=== PATIENT | male | born 1955 | race American Indian/Alaskan Native ===

== ENCOUNTER 2018-08-18 21:48 | Inpatient (IN) | payer MEDICARE ==
--- NOTE | 2018-08-18 22:39 | ED PDOC ---
Arrival/HPI - General Chief Complaint: Med Refill Time Seen by Provider: 08/18/18 21:51 Historian: Patient - History of Present Illness Narrative History of Present Illness (Text): 08/18/18 22:39 Pollo Pickard is a 62 year old male who presents to the ED complaining of dizziness. Patient states he began feeling near-syncopal and dizzy approximately 1 hour prior to arrival while sitting outside. Patient states he has experienced these symptoms when "his dementia comes back." Patient states he takes medication for his dementia but is unable to recall the name. Patient also admits to drinking alcohol today. Patient denies any fever, chills, chest pain, shortness of breath, nausea, vomiting, diarrhea, urinary symptoms, back pain, neck pain, headache, or any other complaints. PMD: Dr. Jennifer Ferrera Symptom Onset: Gradual Symptom Course: Unchanged Activities at Onset: Light Context: Home Past Medical History - Provider Review Nursing Documentation Reviewed: Yes Primary Care Provider: Luis Ferrera A - Infectious Disease Hx of Infectious Diseases: None - Cardiac Hx Cardiac Disorders: No - Pulmonary Hx Respiratory Disorders: No - Neurological Hx Neurological Disorder: Yes Hx Dementia: Yes - HEENT Hx HEENT Disorder: No - Renal Hx Renal Disorder: No - Endocrine/Metabolic Hx Endocrine Disorders: No - Hematological/Oncological Hx Blood Disorders: No - Integumentary Hx Dermatological Disorder: No - Musculoskeletal/Rheumatological Hx Musculoskeletal Disorders: No - Gastrointestinal Hx Gastrointestinal Disorders: No - Genitourinary/Gynecological Hx Genitourinary Disorders: No - Psychiatric Hx Psychophysiologic Disorder: No Hx Substance Use: No - Anesthesia Hx Anesthesia: No Family/Social History - Physician Review Nursing Documentation Reviewed: Yes Family/Social History: Unknown Family HX Smoking Status: Light Smoker < 10 Cigarettes Daily Hx Alcohol Use: No (once a week) Hx Substance Use: No Allergies/Home Meds Allergies/Adverse Reactions: Allergies No Known Allergies Allergy (Verified 08/18/18 22:17) Home Medications: Home Meds Medication Instructions Recorded Confirmed Unobtainable 08/18/18 08/18/18 Review of Systems - Physician Review All systems were reviewed & negative as marked: Yes - Review of Systems Respiratory: absent: SOB, Cough Cardiovascular: Other (+near-syncopal). absent: Chest Pain Gastrointestinal: absent: Diarrhea, Nausea, Vomiting Neurological: Dizziness Physical Exam Vital Signs Reviewed: Yes Vital Signs Temp Pulse Resp BP Pulse Ox 08/18/18 22:17 98.4 F 96 H 15 151/89 H 96 Temperature: Afebrile Blood Pressure: Hypertensive Pulse: Regular Respiratory Rate: Normal Appearance: Positive for: Well-Appearing, Non-Toxic, Comfortable Pain Distress: None Mental Status: Positive for: Alert and Oriented X 3 - Systems Exam Head: Present: Atraumatic, Normocephalic Pupils: Present: PERRL Extroacular Muscles: Present: EOMI Conjunctiva: Present: Normal Mouth: Present: Moist Mucous Membranes Neck: Present: Normal Range of Motion Respiratory/Chest: Present: Clear to Auscultation, Good Air Exchange. No: Respiratory Distress, Accessory Muscle Use Cardiovascular: Present: Regular Rate and Rhythm, Normal S1, S2. No: Murmurs Abdomen: No: Tenderness, Distention, Peritoneal Signs Back: Present: Normal Inspection Upper Extremity: Present: Normal Inspection. No: Cyanosis, Edema Lower Extremity: Present: Normal Inspection. No: Edema Neurological: Present: GCS=15, CN II-XII Intact, Speech Normal Skin: Present: Warm, Dry, Normal Color. No: Rashes Psychiatric: Present: Alert, Oriented x 3, Normal Insight, Normal Concentration Medical Decision Making ED Course and Treatment: 08/18/18 22:39 Impression: 62 year old male complaining of dizziness and near-syncope. Plan: -- CT Head w/o contrast -- EKG -- Chest X-ray -- Labs, troponin, alcohol -- UA -- Reassess and disposition Prior Visits: Notes and results from previous visits were reviewed. Progress Notes: Reviewed EKG, NSR at [address]pm[address] LVH. Non-specific ST/T wave changes. 08/19/18 00:30 Chest X-ray reviewed, shows no acute processes. 08/19/18 00:45 CT Head: Minimal chronic mucosal inflammatory changes of the ethmoid air cells. There is normal configuration of sella turcica. There are no intra or extra- axial collections. There is no mass effect or midline shift. There is no evidence of hematoma formation. No hydrocephalus is present. The ventricles are symmetrical. No abnormal calcifications are present. There is diffuse age-appropriate cerebellar and cerebral atrophy with proportionally dilated ventricles and cortical sulci. There are bilateral periventricular and subcortical white matter hypolucencies compatible with mild chronic microvascular disease. Otherwise, no significant focal abnormalities are seen either in the posterior fossa or supratentorial compartment. IMPRESSION: 1. Age-appropriate cerebellar and cerebral atrophy. 2. Mild chronic microvascular disease. 3. No evidence of acute intracranial pathology. Thank you for your kind referral of this patient. Electronically signed on August 19, 2018 12:41:47 AM EDT by: Willie Dang M.D., Certified by ABR, MSK, Neuroradiology 08/19/18 00:[address] Glasgow, who is aware and agrees with plan. Accepts pt in to hospitalist service. Pt will go to remote telemetry observation for AMS and near-syncope. cmo & president notified. - Lab Interpretations I have reviewed the lab results: Yes - RAD Interpretation Hybrid [employer]ivatives Trader: ED Physician - EKG Interpretation Interpreted by ED Physician: Yes Type: 12 lead EKG - Scribe Statement The provider has reviewed the documentation as recorded by the Scribe Jennifer Curtis Provider Scribe Attestation: All medical record entries made by the Scribe were at my direction and personally dictated by me. I have reviewed the chart and agree that the record accurately reflects my personal performance of the history, physical exam, medical decision making, and the department course for this patient. I have also personally directed, reviewed, and agree with the discharge instructions and disposition. Disposition/Present on Arrival - Present on Arrival Any Indicators Present on Arrival: No History of DVT/PE: No History of Uncontrolled Diabetes: No Urinary Catheter: No History of Decub. Ulcer: No History Surgical Site Infection Following: None - Disposition Have Diagnosis and Disposition been Completed?: Yes Diagnosis: Altered mental status Disposition: HOSPITALIZED Disposition Time: 00:50 Condition: GOOD
[2018-08-18 23:35] LABS: ALB/GLOB RATIO 1.1 (1.1-1.8); ALBUMIN 4.2 g/dL (3.0-4.8); ALT/SGPT 18 U/L (7-56); AST/SGOT 20 U/L (17-59); BLOOD UREA NITROGEN 7 mg/dL (7-21); CALCIUM 10.1 mg/dL (8.4-10.5); GFR NON-AFRICAN AMERICAN > 60
[2018-08-18 23:37] LABS: BASO # 0.01 K/mm3 (0.0-2.0); BASO % 0.2 % (0.0-3.0); EOS % 0.2 % (1.5-5.0); HEMOGLOBIN 13.7 g/dL (14.0-18.0); LYMPH # 1.4 (1.2-3.4); LYMPH % 24.6 % (22.0-35.0); MEAN CORPUSCULAR HEMOGLOBIN 28.8 pg (25.0-35.0); MEAN CORPUSCULAR HGB CONC 34.3 g/dl (31.0-37.0); MEAN PLATELET VOLUME 11.4 fl (7.0-11.0); MONO # 0.9 (0.1-0.6); MONO % 16.2 % (1.0-6.0); RBC 4.75 10^6/uL (3.5-6.1); RED CELL DISTRIBUTION WIDTH 16.4 % (11.5-14.5); WHITE BLOOD COUNT 5.7 10^3/uL (4.5-11.0)
[2018-08-18 23:46] LABS: TROPONIN I < 0.01 ng/mL
--- NOTE | 2018-08-19 01:21 | CP.PCM.HP ---
<Francesco Ferreira - Last Filed: 08/19/18 04:26> History of Present Illness - History of Present Illness History of Present Illness: Francesco Ferreira, PGY1 H&P for Dr. Glasgow cc: "confusion/dementia" Patient is a 62 year old male with PMHx dementia who presents to the ED complaining of "confusion/dementia." Patient says he was sitting outside 1 hour prior to arrival to the ED when he felt confused. He endorses a history of dementia and says he takes medication for his dementia but does not recall the n baldev. Patient is currently AAOx2 during interview (person, place). He has no previous visits to [facility] [place] [facility] [place]. Patient denies tongue biting, foaming of mouth, incontinence, or any seizure like activity prior to arrival. However, he does say that he drank a few beers before coming in to the ED. He denies fever, chills, headache, n/v/d, cp, sob, bowel/bladder changes. Patient claims to live at [address] [place] [address], at an apartment in [place]. He says he goes to multiple pharmacies and cannot recall the names of them. A full 12 point ROS was conducted and unremarkable except as stated above. No previous visits PMD: Dr. Jennifer Ferrera PMHx: dementia PSHx: denies Meds: unobtainable Allergies: NKDA SocialHx: smoker (<1 PPD x12 years), drinks EtOH (few beers), denies illicit drug use. FamHx: non-contributory Present on Admission - Present on Admission Any Indicators Present on Admission: No Review of Systems - Review of Systems All systems: reviewed and no additional remarkable complaints except (as per HPI) Past Patient History - Infectious Disease Hx of Infectious Diseases: None - Past Social History Smoking Status: Light Smoker < 10 Cigarettes Daily - CARDIAC Hx Cardiac Disorders: No - PULMONARY Hx Respiratory Disorders: No - NEUROLOGICAL Hx Neurological Disorder: Yes Hx Dementia: Yes - HEENT Hx HEENT Problems: No - RENAL Hx Chronic Kidney Disease: No - ENDOCRINE/METABOLIC Hx Endocrine Disorders: No - HEMATOLOGICAL/ONCOLOGICAL Hx Blood Disorders: No - INTEGUMENTARY Hx Dermatological Problems: No - MUSCULOSKELETAL/RHEUMATOLOGICAL Hx Musculoskeletal Disorders: No - GASTROINTESTINAL Hx Gastrointestinal Disorders: No - GENITOURINARY/GYNECOLOGICAL Hx Genitourinary Disorders: No - PSYCHIATRIC Hx Psychophysiologic Disorder: No Hx Substance Use: No - SURGICAL HISTORY Hx Surgeries: No - ANESTHESIA Hx Anesthesia: No Meds Allergies/Adverse Reactions: Allergies Allergy/AdvReac Type Severity Reaction Status Date / Time No Known Allergies Allergy Verified 08/18/18 22:17 Physical Exam - Constitutional Appears: No Acute Distress, Unkempt - Head Exam Head Exam: ATRAUMATIC, NORMAL INSPECTION, NORMOCEPHALIC - Eye Exam Eye Exam: Conjunctival injection, EOMI, PERRL Pupil Exam: NORMAL ACCOMODATION - ENT Exam ENT Exam: Mucous Membranes Moist - Respiratory Exam Respiratory Exam: Clear to Auscultation Bilateral. absent: Accessory Muscle Use, Chest Wall Tenderness, Rales, Rhonchi, Wheezes - Cardiovascular Exam Cardiovascular Exam: RRR, +S1, +S2 - GI/Abdominal Exam GI & Abdominal Exam: Normal Bowel Sounds, Soft. absent: Firm, Guarding, Rebound, Rigid, Tenderness - Extremities Exam Extremities exam: Positive for: normal capillary refill, normal inspection, pedal pulses present - Back Exam Back exam: NORMAL INSPECTION - Neurological Exam Neurological exam: Alert, CN II-XII Intact, Oriented x3, Reflexes Normal Additional comments: Neuro exam normal. No focal neurological deficits. 5/5 motor strength in all ext. Sensation intact in all distal ext. - Psychiatric Exam Psychiatric exam: Normal Affect, Normal Mood - Skin Skin Exam: Dry, Intact, Normal Color, Warm Results - Vital Signs Recent Vital Signs: Last Vital Signs Temp 98.4 F 08/18/18 22:17 Pulse 86 08/18/18 23:52 Resp 12 08/18/18 23:52 BP 156/96 H 08/18/18 23:52 Pulse Ox 99 08/18/18 23:52 - Labs Result Diagrams: 08/18/18 23:04 08/18/18 23:04 Labs: Laboratory Results - last 24 hr 08/18/18 08/18/18 08/18/18 23:04 23:04 23:04 WBC 5.7 RBC 4.75 Hgb 13.7 L Hct 39.9 L MCV 84.0 MCH 28.8 MCHC 34.3 RDW 16.4 H Plt Count 128 MPV 11.4 H Neut % (Auto) 58.8 Lymph % (Auto) 24.6 Allen % (Auto) 16.2 H Eos % (Auto) 0.2 L Baso % (Auto) 0.2 Lymph # (Auto) 1.4 Allen # (Auto) 0.9 H Eos # (Auto) 0.0 Baso # (Auto) 0.01 Absolute Neuts (auto) 3.35 Sodium 138 Potassium 4.0 Chloride 106 Carbon Dioxide 25 Anion Gap 11 BUN 7 Creatinine 0.8 Est GFR ( Amer) > 60 Est GFR (Non-Af Amer) > 60 Random Glucose 99 Calcium 10.1 Total Bilirubin 0.5 AST 20 ALT 18 Alkaline Phosphatase 61 Troponin I < 0.01 Total Protein 8.0 Albumin 4.2 Globulin 3.8 Albumin/Globulin Ratio 1.1 Alcohol, Quantitative < 10 Assessment & Plan - Assessment and Plan (Free Text) Assessment: Patient is a 62 year old male with PMHx dementia who presents to the ED complaining of confusion/dementia. Plan: EtOH Intoxication/Withdrawal - EtOH level, UDS - CIWA protocol - Banana bag x1 - Ativan 2mg IVP q6 scheduled - Ativan 2mg IVP q2 prn - Zofran prn for nausea/vomiting - Multivitamin/folic acid/thiamine PO after banana bag - seizure/fall/aspiration precautions - Several beers prior to ED admission - EKG: NSR [address] or T wave changes. Dementia - Patient endorses hx dementia and states he takes meds for dementia - Will need confirmation of meds from PMD (Dr. Ferrera) as he does not recall which pharmacy he gets it from - UA - Neurologic exam wnl and no focal neurologic deficits to suggest stroke - CT Head: no acute changes. Chronic age-related changes and microvascular disease ppx: -scd Diet: HHD Dispo: Will monitor patient on remote tele. Monitor for signs of EtOH withdrawal. Will need proper med reconciliation in the morning for "dementia meds". Case was discussed and reviewed with Attending Physician, Dr. Glasgow <Jeanie Glasgow - Last Filed: 08/19/18 05:04> Results - Vital Signs Recent Vital Signs: Last Vital Signs Temp 98.4 F 08/18/18 22:17 Pulse 86 08/18/18 23:52 Resp 12 08/18/18 23:52 BP 156/96 H 08/18/18 23:52 Pulse Ox 99 08/18/18 23:52 - Labs Result Diagrams: 08/18/18 23:04 08/18/18 23:04 Labs: Laboratory Results - last 24 hr 08/18/18 08/18/18 08/18/18 23:04 23:04 23:04 WBC 5.7 RBC 4.75 Hgb 13.7 L Hct 39.9 L MCV 84.0 MCH 28.8 MCHC 34.3 RDW 16.4 H Plt Count 128 MPV 11.4 H Neut % (Auto) 58.8 Lymph % (Auto) 24.6 Allen % (Auto) 16.2 H Eos % (Auto) 0.2 L Baso % (Auto) 0.2 Lymph # (Auto) 1.4 Allen # (Auto) 0.9 H Eos # (Auto) 0.0 Baso # (Auto) 0.01 Absolute Neuts (auto) 3.35 Sodium 138 Potassium 4.0 Chloride 106 Carbon Dioxide 25 Anion Gap 11 BUN 7 Creatinine 0.8 Est GFR ( Amer) > 60 Est GFR (Non-Af Amer) > 60 Random Glucose 99 Calcium 10.1 Phosphorus Magnesium Total Bilirubin 0.5 AST 20 ALT 18 Alkaline Phosphatase 61 Troponin I < 0.01 Total Protein 8.0 Albumin 4.2 Globulin 3.8 Albumin/Globulin Ratio 1.1 Alcohol, Quantitative < 10 08/18/18 23:04 WBC RBC Hgb Hct MCV MCH MCHC RDW Plt Count MPV Neut % (Auto) Lymph % (Auto) Allen % (Auto) Eos % (Auto) Baso % (Auto) Lymph # (Auto) Allen # (Auto) Eos # (Auto) Baso # (Auto) Absolute Neuts (auto) Sodium Potassium Chloride Carbon Dioxide Anion Gap BUN Creatinine Est GFR ( Amer) Est GFR (Non-Af Amer) Random Glucose Calcium Phosphorus 3.4 Magnesium 1.7 Total Bilirubin AST ALT Alkaline Phosphatase Troponin I Total Protein Albumin Globulin Albumin/Globulin Ratio Alcohol, Quantitative Attending/Attestation - Attestation Notes (Text): 08/19/18 05:00 Patient was seen when he was in room # 11 in the ER. Medical record was reviewed. Agree with history, physical examination, assessment and plan. 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
[2018-08-19] MEDS ORDERED: Folic Acid 1 MG, Thiamine 100 MG, Multivitamin (MVI) 10 ML in Dextrose 5% In Water 1,00... IV SCH (02:30)
[2018-08-19] MEDS: Pantoprazole 40 mg EC Tab PO SCH (05:59)
[2018-08-19] MEDS: Multivitamin With Minerals Tab PO SCH (10:33)
--- NOTE | 2018-08-19 10:52 | CT ---
Date of service: 08/18/2018 PROCEDURE: CT HEAD WITHOUT CONTRAST. HISTORY: syncope COMPARISON: None available TECHNIQUE: Axial computed tomography images were obtained through the head/brain without intravenous contrast. Radiation dose: Total exam DLP = 872.24 mGy-cm. This CT exam was performed using one or more of the following dose reduction techniques: Automated exposure control, adjustment of the mA and/or kV according to patient size, and/or use of iterative reconstruction technique. FINDINGS: HEMORRHAGE: No intracranial hemorrhage. BRAIN: No mass effect or edema. Atrophy. Chronic microvascular ischemic changes. VENTRICLES: Unremarkable. No hydrocephalus. CALVARIUM: Unremarkable. PARANASAL SINUSES: Unremarkable as visualized. No significant inflammatory changes. MASTOID AIR CELLS: Unremarkable as visualized. No inflammatory changes. OTHER FINDINGS: None. IMPRESSION: No acute intracranial pathology.
--- NOTE | 2018-08-19 11:24 | CARD ---
APPROVED REPORT Date of service: 08/18/2018 EKG Measurement Heart [id number] <Conclusion> Normal sinus rhythm Moderate voltage criteria for LVH, may be normal variant Possible Inferior infarct, age undetermined Abnormal ECG
[2018-08-19 14:57] LABS: URINE BILIRUBIN NEGATIVE (NEGATIVE); URINE BLOOD NEGATIVE (NEGATIVE); URINE GLUCOSE (UA) NEGATIVE (NEGATIVE); URINE LEUKOCYTE ESTERASE SMALL Leu/uL (NEGATIVE); URINE PROTEIN NEGATIVE mg/dL (<30 mg/dL); URINE UROBILINOGEN 0.2 E.U./dL (<1 E.U./dL)
[2018-08-19 15:00] LABS: URINE COLOR YELLOW (YELLOW)
[2018-08-19 15:01] LABS: URINE APPEARANCE CLEAR (CLEAR)
[2018-08-20] MEDS: Pantoprazole 40 mg EC Tab PO SCH (05:46)
[2018-08-20 06:12] LABS: HEMOGLOBIN 12.9 g/dL (14.0-18.0); MEAN CELL VOLUME 84.8 fl (80.0-105.0); MEAN PLATELET VOLUME 11.5 fl (7.0-11.0); RBC 4.61 10^6/uL (3.5-6.1); RED CELL DISTRIBUTION WIDTH 16.8 % (11.5-14.5); WHITE BLOOD COUNT 4.6 10^3/uL (4.5-11.0)
[2018-08-20 07:13] LABS: ALB/GLOB RATIO 1.1 (1.1-1.8); ALBUMIN 3.6 g/dL (3.0-4.8); ALT/SGPT 18 U/L (7-56); AST/SGOT 20 U/L (17-59); BLOOD UREA NITROGEN 13 mg/dL (7-21); CALCIUM 10.2 mg/dL (8.4-10.5); GFR NON-AFRICAN AMERICAN > 60
[2018-08-20] MEDS: Multivitamin With Minerals Tab PO SCH (10:11)
--- NOTE | 2018-08-20 16:22 | CP.PCM.PN ---
<Brian De Santiago - Last Filed: 08/20/18 16:17> Subjective - Date & Time of Evaluation Date of Evaluation: 08/20/18 Time of Evaluation: 07:00 - Subjective Subjective: Patient seen and examined at bedside. No complaints overnight. No complaints at this time. Denies chest pain, shortness of breath, nausea, vomiting, diarrhea, fever, chills. Objective - Vital Signs/Intake and Output Vital Signs (last 24 hours): Temp Pulse Resp BP Pulse Ox 98.1 F 77 19 107/73 97 08/19/18 16:53 08/20/18 13:54 08/19/18 16:53 08/19/18 16:53 08/19/18 16:53 - Medications Medications: Current Medications Folic Acid (Folic Acid) 1 mg PO DAILY [facility] Last Admin: 08/20/18 10:11 Dose: 1 mg Lorazepam (Ativan) 2 mg IVP Q6H TIERNEY; Protocol Last Admin: 08/20/18 14:32 Dose: 2 mg Lorazepam (Ativan) 2 mg IVP Q2H PRN; Protocol PRN Reason: Anxiety Last Admin: 08/20/18 12:08 Dose: 2 mg Multivitamins/Minerals (Therapeutic-M Tab) 1 tab PO 0800 [facility] Last Admin: 08/20/18 10:11 Dose: 1 tab Ondansetron HCl (Zofran Inj) 4 mg IVP Q4H PRN PRN Reason: Nausea/Vomiting Pantoprazole Sodium (Protonix Ec Tab) 40 mg PO 0600 [facility] Last Admin: 08/20/18 05:46 Dose: 40 mg Thiamine HCl (Vitamin B1 Tab) 100 mg PO DAILY TIERNEY Last Admin: 08/20/18 10:11 Dose: 100 mg - Labs Labs: 08/20/18 05:30 08/20/18 05:30 - Constitutional Appears: Non-toxic, No Acute Distress - Head Exam Head Exam: ATRAUMATIC, NORMAL INSPECTION, NORMOCEPHALIC - ENT Exam ENT Exam: Mucous Membranes Moist - Respiratory Exam Respiratory Exam: Decreased Breath Sounds, Clear to Ausculation Bilateral, NORMAL BREATHING PATTERN - Cardiovascular Exam Cardiovascular Exam: RRR, +S1, +S2. absent: Gallop, Rubs, Murmur - GI/Abdominal Exam GI & Abdominal Exam: Soft, Normal Bowel Sounds. absent: Tenderness - Extremities Exam Extremities Exam: Normal Inspection. absent: Pedal Edema, Tenderness - Neurological Exam Neurological Exam: Alert, Awake, Oriented x3 - Psychiatric Exam Psychiatric exam: Normal Affect, Normal Mood - Skin Skin Exam: Intact, Normal Color, Warm Assessment and Plan - Assessment and Plan (Free Text) Plan: 62 year old male with past medical history of dementia presents with alcohol intoxication. Patient awaiting physical therapy and will follow up with social work recommendations. EtOH Intoxication MVI, thiamine, and folic acid Ativan tapered to 1 mg IVP q6h TIERNEY Ativan tapered to 1mg IVP q4h prn Zofran prn Dementia Vitamin B6,[address] Head negative Physical therapy ordered PPX SCD Jonnathan, PGY-3 <Natividad Chinchilla - Last Filed: 08/24/18 12:37> Objective - Vital Signs/Intake and Output Vital Signs (last 24 hours): Temp Pulse Resp BP Pulse Ox 97.8 F 73 20 124/82 98 08/24/18 08:59 08/24/18 08:59 08/24/18 08:59 08/24/18 08:59 08/24/18 08:59 Intake and Output: 08/24/18 08/24/18 06:59 18:59 Intake Total 480 Output Total 1420 Balance -940 - Medications Medications: Current Medications Folic Acid (Folic Acid) 1 mg PO DAILY [facility] Last Admin: 08/24/18 10:24 Dose: 1 mg Multivitamins/Minerals (Therapeutic-M Tab) 1 tab PO 0800 [facility] Last Admin: 08/24/18 08:49 Dose: 1 tab Ondansetron HCl (Zofran Inj) 4 mg IVP Q4H PRN PRN Reason: Nausea/Vomiting Thiamine HCl (Vitamin B1 Tab) 100 mg PO DAILY [facility] Last Admin: 08/24/18 10:24 Dose: 100 mg - Labs Labs: 08/22/18 06:00 08/22/18 06:00 Attending/Attestation - Attestation I have personally seen and examined this patient.: Yes I have fully participated in the care of the patient.: Yes I have reviewed all pertinent clinical information, including history, physical exam and plan: Yes Notes (Text): 08/24/18 12:36 Medical record note made by the resident after discussion with my direction and input after the patient was personally seen and examined by me. I have reviewed the chart and agree that the record accurately reflects by personal performance of the history, physical exam, data review, and medical decision-making, in the course for the patient. I have also personally directed the plan of care.
[2018-08-21] MEDS: Pantoprazole 40 mg EC Tab PO SCH (05:37)
[2018-08-21 06:49] LABS: HEMOGLOBIN 13.2 g/dL (14.0-18.0); MEAN CELL VOLUME 84.8 fl (80.0-105.0); MEAN CORPUSCULAR HEMOGLOBIN 27.9 pg (25.0-35.0); MEAN CORPUSCULAR HGB CONC 32.9 g/dl (31.0-37.0); MEAN PLATELET VOLUME 11.3 fl (7.0-11.0); RBC 4.73 10^6/uL (3.5-6.1); RED CELL DISTRIBUTION WIDTH 16.8 % (11.5-14.5)
[2018-08-21 07:07] LABS: ALB/GLOB RATIO 1.1 (1.1-1.8); ALBUMIN 3.8 g/dL (3.0-4.8); ALT/SGPT 12 U/L (7-56); AST/SGOT 18 U/L (17-59); BLOOD UREA NITROGEN 14 mg/dL (7-21); GFR NON-AFRICAN AMERICAN > 60
[2018-08-21] MEDS: Multivitamin With Minerals Tab PO SCH (08:51)
--- NOTE | 2018-08-21 14:19 | CP.PCM.PCO ---
Physician Communication Note - Physician Communication Note Physician Communication Note: Pt. seen,feels better, PT rec. CHARLY,SW for CHARLY planning
--- NOTE | 2018-08-21 16:03 | CP.PCM.PN ---
<Nilo Jimenez - Last Filed: 08/21/18 15:59> Subjective - Date & Time of Evaluation Date of Evaluation: 08/21/18 Time of Evaluation: 15:59 - Subjective Subjective: Celestino Jimenez PGY2 - Progress Note for Dr. Chinchilla Patient seen and examined this AM. No acute events reported overnight. Patient without complaints, clinically unchanged. Patient denies chest pain, shortness of breath, abdominal pain, nausea, vomiting, fever, chills. Objective - Vital Signs/Intake and Output Vital Signs (last 24 hours): Temp Pulse Resp BP Pulse Ox 97.5 F L 75 20 137/87 98 08/21/18 08:26 08/21/18 08:26 08/21/18 08:26 08/21/18 08:26 08/21/18 08:26 - Medications Medications: Current Medications Folic Acid (Folic Acid) 1 mg PO DAILY [facility] Last Admin: 08/21/18 09:59 Dose: 1 mg Multivitamins/Minerals (Therapeutic-M Tab) 1 tab PO 0800 [facility] Last Admin: 08/21/18 08:51 Dose: 1 tab Ondansetron HCl (Zofran Inj) 4 mg IVP Q4H PRN PRN Reason: Nausea/Vomiting Pantoprazole Sodium (Protonix Ec Tab) 40 mg PO 0600 [facility] Last Admin: 08/21/18 05:37 Dose: Not Given Thiamine HCl (Vitamin B1 Tab) 100 mg PO DAILY [facility] Last Admin: 08/21/18 09:59 Dose: 100 mg - Labs Labs: 08/21/18 06:00 08/21/18 06:00 - Constitutional Appears: No Acute Distress - Head Exam Head Exam: ATRAUMATIC, NORMOCEPHALIC - Eye Exam Eye Exam: Conjunctival injection (improved from admission ), EOMI - ENT Exam ENT Exam: Mucous Membranes Moist - Respiratory Exam Respiratory Exam: Clear to Ausculation Bilateral, NORMAL BREATHING PATTERN. absent: Rales, Wheezes - Cardiovascular Exam Cardiovascular Exam: REGULAR RHYTHM, +S1, +S2 - GI/Abdominal Exam GI & Abdominal Exam: Soft, Normal Bowel Sounds. absent: Tenderness - Neurological Exam Neurological Exam: Alert, Awake Additional comments: motor and sensory grossly intact, patient ambulates with walking cane - Psychiatric Exam Additional comments: baseline dementia, patient alert and oriented to self, difficulty with place and specific time - Skin Skin Exam: Dry, Intact Assessment and Plan - Assessment and Plan (Free Text) Assessment: 62 year old male with past medical history of dementia and substance abuse who presented who was admitted for suspected etoh intoxication vs. withdrawal and dementia leading to unsafe discharge. Plan: Dementia - Patient appears to be at baseline - CT head negative on admission - Continue to monitor for acute changes ETOH intoxication/withdrawal - MVI, THiamine, Folic acid - Patient CIWA continue to be 3,5 likely elevated secondary to baseline dementia, no agitation or tremors noted on exam - Continue with ativan prn - Continue with zofran prn PT recommending [facility] upon discharge GI/DVT prophylaxis - protonix - SCD Patient case and plan discussed with attending Dr. Chinchilla <Natividad Chinchilla - Last Filed: 08/24/18 12:36> Objective - Vital Signs/Intake and Output Vital Signs (last 24 hours): Temp Pulse Resp BP Pulse Ox 97.8 F 73 20 124/82 98 08/24/18 08:59 08/24/18 08:59 08/24/18 08:59 08/24/18 08:59 08/24/18 08:59 Intake and Output: 08/24/18 08/24/18 06:59 18:59 Intake Total 480 Output Total 1420 Balance -940 - Medications Medications: Current Medications Folic Acid (Folic Acid) 1 mg PO DAILY [facility] Last Admin: 08/24/18 10:24 Dose: 1 mg Multivitamins/Minerals (Therapeutic-M Tab) 1 tab PO 0800 [facility] Last Admin: 08/24/18 08:49 Dose: 1 tab Ondansetron HCl (Zofran Inj) 4 mg IVP Q4H PRN PRN Reason: Nausea/Vomiting Thiamine HCl (Vitamin B1 Tab) 100 mg PO DAILY [facility] Last Admin: 08/24/18 10:24 Dose: 100 mg - Labs Labs: 08/22/18 06:00 08/22/18 06:00 Attending/Attestation - Attestation I have personally seen and examined this patient.: Yes I have fully participated in the care of the patient.: Yes I have reviewed all pertinent clinical information, including history, physical exam and plan: Yes Notes (Text): 08/24/18 12:36 Medical record note made by the resident after discussion with my direction and input after the patient was personally seen and examined by me. I have reviewed the chart and agree that the record accurately reflects by personal performance of the history, physical exam, data review, and medical decision-making, in the course for the patient. I have also personally directed the plan of care.
[2018-08-22] MEDS: Pantoprazole 40 mg EC Tab PO SCH (05:55)
[2018-08-22 06:25] LABS: HEMOGLOBIN 12.9 g/dL (14.0-18.0); MEAN CELL VOLUME 84.9 fl (80.0-105.0); MEAN CORPUSCULAR HEMOGLOBIN 28.2 pg (25.0-35.0); MEAN CORPUSCULAR HGB CONC 33.2 g/dl (31.0-37.0); MEAN PLATELET VOLUME 11.1 fl (7.0-11.0); RBC 4.58 10^6/uL (3.5-6.1); RED CELL DISTRIBUTION WIDTH 16.7 % (11.5-14.5); WHITE BLOOD COUNT 4.3 10^3/uL (4.5-11.0)
[2018-08-22 07:32] LABS: ALB/GLOB RATIO 1.1 (1.1-1.8); ALBUMIN 3.7 g/dL (3.0-4.8); ALT/SGPT 16 U/L (7-56); AST/SGOT 21 U/L (17-59); BLOOD UREA NITROGEN 18 mg/dL (7-21); GFR NON-AFRICAN AMERICAN > 60
--- NOTE | 2018-08-22 10:31 | CP.PCM.PN ---
<Nilo Jimenez - Last Filed: 08/22/18 12:19> Subjective - Date & Time of Evaluation Date of Evaluation: 08/22/18 Time of Evaluation: 10:28 - Subjective Subjective: Patient seen and examined this AM. No acute events reported overnight. Patient continues to exhibit confusion and delayed speech response and some slurring of words. Patient denies chest pain, shortness of breath, abdominal pain, nausea, vomiting, fever, chills. Continues to ambulate with assistance of cane. No indication of family visitation. Objective - Vital Signs/Intake and Output Vital Signs (last 24 hours): Temp Pulse Resp BP Pulse Ox 98.4 F 71 18 111/75 99 08/22/18 06:00 08/22/18 06:00 08/22/18 06:00 08/22/18 06:00 08/22/18 06:00 - Medications Medications: Current Medications Folic Acid (Folic Acid) 1 mg PO DAILY [facility] Last Admin: 08/21/18 09:59 Dose: 1 mg Multivitamins/Minerals (Therapeutic-M Tab) 1 tab PO 0800 [facility] Last Admin: 08/21/18 08:51 Dose: 1 tab Ondansetron HCl (Zofran Inj) 4 mg IVP Q4H PRN PRN Reason: Nausea/Vomiting Pantoprazole Sodium (Protonix Ec Tab) 40 mg PO 0600 [facility] Last Admin: 08/22/18 05:55 Dose: 40 mg Thiamine HCl (Vitamin B1 Tab) 100 mg PO DAILY [facility] Last Admin: 08/21/18 09:59 Dose: 100 mg - Labs Labs: 08/22/18 06:00 08/22/18 06:00 - Constitutional Appears: No Acute Distress - Head Exam Head Exam: ATRAUMATIC, NORMOCEPHALIC - Eye Exam Eye Exam: Conjunctival injection, EOMI, PERRL - ENT Exam ENT Exam: Mucous Membranes Moist - Neck Exam Neck Exam: Full ROM - Respiratory Exam Respiratory Exam: Clear to Ausculation Bilateral, NORMAL BREATHING PATTERN. absent: Rales, Rhonchi, Wheezes - Cardiovascular Exam Cardiovascular Exam: REGULAR RHYTHM, +S1, +S2 - GI/Abdominal Exam GI & Abdominal Exam: Soft, Normal Bowel Sounds. absent: Firm, Guarding, Rigid, Tenderness - Extremities Exam Extremities Exam: Full ROM, Normal Inspection. absent: Calf Tenderness, Pedal Edema - Neurological Exam Neurological Exam: Alert, Awake, Normal Gait Neuro motor strength exam: Left Upper Extremity: 5, Right Upper Extremity: 5, Left Lower Extremity: 5, Right Lower Extremity: 5 - Psychiatric Exam Psychiatric exam: Normal Affect, Normal Mood. absent: Agitated, Anxious - Skin Skin Exam: Dry, Intact Assessment and Plan - Assessment and Plan (Free Text) Assessment: 62 year old male with past medical history of dementia and substance abuse who presented who was admitted for suspected etoh intoxication vs. withdrawal and dementia. Patient evaluated by PT recommending acute rehab. Plan: Dementia - Patient appears to be at baseline, continued minimal slurring of speech, delay in speech - CT head negative on admission - Continue to monitor for acute changes ETOH intoxication/withdrawal - MVI, THiamine, Folic acid - Patient is s/p 3 days since admission, window for withdrawal over - Continue with ativan prn - Continue with zofran prn - DC telemetry at this point considering limited to no events PT recommending [facility] upon discharge, patient agreeable to [facility] GI/DVT prophylaxis - protonix - SCD Patient case and plan discussed with attending Dr. Chinchilla <Natividad Chinchilla - Last Filed: 08/24/18 12:35> Objective - Vital Signs/Intake and Output Vital Signs (last 24 hours): Temp Pulse Resp BP Pulse Ox 97.8 F 73 20 124/82 98 08/24/18 08:59 08/24/18 08:59 08/24/18 08:59 08/24/18 08:59 08/24/18 08:59 Intake and Output: 08/24/18 08/24/18 06:59 18:59 Intake Total 480 Output Total 1420 Balance -940 - Medications Medications: Current Medications Folic Acid (Folic Acid) 1 mg PO DAILY [facility] Last Admin: 08/24/18 10:24 Dose: 1 mg Multivitamins/Minerals (Therapeutic-M Tab) 1 tab PO 0800 [facility] Last Admin: 08/24/18 08:49 Dose: 1 tab Ondansetron HCl (Zofran Inj) 4 mg IVP Q4H PRN PRN Reason: Nausea/Vomiting Thiamine HCl (Vitamin B1 Tab) 100 mg PO DAILY [facility] Last Admin: 08/24/18 10:24 Dose: 100 mg - Labs Labs: 08/22/18 06:00 08/22/18 06:00 Attending/Attestation - Attestation I have personally seen and examined this patient.: Yes I have fully participated in the care of the patient.: Yes I have reviewed all pertinent clinical information, including history, physical exam and plan: Yes Notes (Text): 08/24/18 12:35 Patient is stable at base line.He is awaiting [facility] placement.
[2018-08-22] MEDS: Multivitamin With Minerals Tab PO SCH (11:50)
--- NOTE | 2018-08-22 12:27 | CP.PCM.PCO ---
Additional Comments - Additional Comments Additional Comments: 62 year old male with past medical history of dementia and substance abuse who presented who was admitted for suspected etoh intoxication vs. withdrawal and dementia. No seizure activity, no palpitations, no dizziness. ETOH intoxication- Cont. MVI, folic acid, ativan prn. Patient evaluated by PT recommending [facility] /rehab. SW for [facility] planning, cleared for DC when accepted to [facility].
[2018-08-23] MEDS: Pantoprazole 40 mg EC Tab PO SCH (05:10)
[2018-08-23 08:23] VITALS: RESP 20; O2SAT 98
[2018-08-23] MEDS: Multivitamin With Minerals Tab PO SCH (10:32)
--- NOTE | 2018-08-23 13:50 | CP.PCM.PN ---
<Nilo Jimenez - Last Filed: 08/23/18 13:47> Subjective - Date & Time of Evaluation Date of Evaluation: 08/23/18 Time of Evaluation: 13:47 - Subjective Subjective: Patient seen and exhibited this AM. No acute events reported overnight. Patient clinically unchanged, he continues to show confusion with questioning. Patient is aware he has dementia and is confused. He denies chest pain, shortness of breath, abdominal pain, nausea, vomiting, diarrhea, constipation. Objective - Vital Signs/Intake and Output Vital Signs (last 24 hours): Temp Pulse Resp BP Pulse Ox 97.9 F 71 20 133/86 98 08/23/18 06:00 08/23/18 06:00 08/23/18 06:00 08/23/18 06:00 08/23/18 06:00 - Medications Medications: Current Medications Folic Acid (Folic Acid) 1 mg PO DAILY [facility] Last Admin: 08/23/18 10:32 Dose: 1 mg Multivitamins/Minerals (Therapeutic-M Tab) 1 tab PO 0800 [facility] Last Admin: 08/23/18 10:32 Dose: 1 tab Ondansetron HCl (Zofran Inj) 4 mg IVP Q4H PRN PRN Reason: Nausea/Vomiting Pantoprazole Sodium (Protonix Ec Tab) 40 mg PO 0600 [facility] Last Admin: 08/23/18 05:10 Dose: 40 mg Thiamine HCl (Vitamin B1 Tab) 100 mg PO DAILY [facility] Last Admin: 08/23/18 10:32 Dose: 100 mg - Labs Labs: 08/22/18 06:00 08/22/18 06:00 - Constitutional Appears: Non-toxic, No Acute Distress - Head Exam Head Exam: ATRAUMATIC, NORMAL INSPECTION, NORMOCEPHALIC - Eye Exam Eye Exam: Conjunctival injection (improved since admission ), EOMI, PERRL - ENT Exam ENT Exam: Mucous Membranes Moist, Normal Oropharynx - Neck Exam Neck Exam: Full ROM - Respiratory Exam Respiratory Exam: Clear to Ausculation Bilateral, NORMAL BREATHING PATTERN. absent: Rales, Rhonchi, Wheezes - Cardiovascular Exam Cardiovascular Exam: REGULAR RHYTHM, +S1, +S2 - GI/Abdominal Exam GI & Abdominal Exam: Soft, Normal Bowel Sounds. absent: Guarding, Rigid, Tenderness - Extremities Exam Extremities Exam: Full ROM. absent: Calf Tenderness, Pedal Edema - Neurological Exam Neurological Exam: Alert, Awake, CN II-XII Intact, Normal Gait Neuro motor strength exam: Left Upper Extremity: 5, Right Upper Extremity: 5, Left Lower Extremity: 5, Right Lower Extremity: 5 - Psychiatric Exam Psychiatric exam: Normal Affect, Normal Mood Additional comments: confusion, needs to be redirected - Skin Skin Exam: Dry, Intact Assessment and Plan - Assessment and Plan (Free Text) Assessment: 62 year old male with past medical history of dementia and substance abuse who presented who was admitted for suspected etoh intoxication vs. withdrawal and dementia. Patient evaluated by PT recommending acute rehab. Patient scheduled to go to rehab tomorrow Plan: Dementia - Patient appears to be at baseline, continued minimal slurring of speech, delay in speech but comprehensible - CT head negative on admission - Continue to monitor for acute changes ETOH intoxication/withdrawal - MVI, THiamine, Folic acid - Patient is s/p 3 days since admission, window for withdrawal over - Continue with ativan prn - Continue with zofran prn - DC telemetry at this point considering limited to no events PT recommending [facility] upon discharge, patient agreeable to [facility] Medical records requested from [facility] [place], follow up GI/DVT prophylaxis - protonix - SCD Patient case and plan discussed with attending Dr. Chinchilla <Natividad Chinchilla - Last Filed: 08/24/18 12:35> Objective - Vital Signs/Intake and Output Vital Signs (last 24 hours): Temp Pulse Resp BP Pulse Ox 97.8 F 73 20 124/82 98 08/24/18 08:59 08/24/18 08:59 08/24/18 08:59 08/24/18 08:59 08/24/18 08:59 Intake and Output: 08/24/18 08/24/18 06:59 18:59 Intake Total 480 Output Total 1420 Balance -940 - Medications Medications: Current Medications Folic Acid (Folic Acid) 1 mg PO DAILY [facility] Last Admin: 08/24/18 10:24 Dose: 1 mg Multivitamins/Minerals (Therapeutic-M Tab) 1 tab PO 0800 [facility] Last Admin: 08/24/18 08:49 Dose: 1 tab Ondansetron HCl (Zofran Inj) 4 mg IVP Q4H PRN PRN Reason: Nausea/Vomiting Thiamine HCl (Vitamin B1 Tab) 100 mg PO DAILY [facility] Last Admin: 08/24/18 10:24 Dose: 100 mg - Labs Labs: 08/22/18 06:00 08/22/18 06:00 Attending/Attestation - Attestation I have personally seen and examined this patient.: Yes I have fully participated in the care of the patient.: Yes I have reviewed all pertinent clinical information, including history, physical exam and plan: Yes Notes (Text): 08/24/18 12:30 Patient was seen and examined with medical observer. 62 year old male with past medical history of dementia and substance abuse was admitted for alcohol withdrawal and confusion. He has mild cognitive dysfunction but otherwise alert,awake and oriented.His speech is normal.There is no focal deficit.CT head was negative for acute infarct. There is no sign of alcohol withdrawal at this time. He was having difficulty in ambulation, he was evaluated by PT and [facility] has been recommended.He will be discharged to [facility]. Issue of ongoing alcohol abuse and compliance with medication was discussed in detail. 08/24/18 12:34
--- NOTE | 2018-08-23 14:30 | CP.PCM.PCO ---
Physician Communication Note - Physician Communication Note Physician Communication Note: medically cleared per pcp,[facility] Sat.when bed available.
[2018-08-24] MEDS: Pantoprazole 40 mg EC Tab PO SCH (05:37)
[2018-08-24] MEDS: Multivitamin With Minerals Tab PO SCH (08:49)
[2018-08-24 09:00] VITALS: BP 124/82; PULSE 73; TEMP 97.8
--- NOTE | 2018-08-24 10:30 | CP.PCM.DIS ---
<TonyNilo - Last Filed: 08/24/18 14:09> Provider - Provider Date of Admission: 08/21/18 14:41 Attending physician: Natividad Chinchilla MD Consults: 08/19/18 05:37 Social Work Referral Routine Comment: Confused; Appears he is unable for self-care Physician Instructions: Reason For Exam: Lives alone; Eloise score of 8 Time Spent in preparation of Discharge (in minutes): 25 Hospital Course - Lab Results Lab Results: Most Recent Lab Values WBC 4.3 10^3/uL (4.5-11.0) L 08/22/18 06:00 RBC 4.58 10^6/uL (3.5-6.1) 08/22/18 06:00 Hgb 12.9 g/dL (14.0-18.0) L 08/22/18 06:00 Hct 38.9 % (42.0-52.0) L 08/22/18 06:00 MCV 84.9 fl (80.0-105.0) 08/22/18 06:00 MCH 28.2 pg (25.0-35.0) 08/22/18 06:00 MCHC 33.2 g/dl (31.0-37.0) 08/22/18 06:00 RDW 16.7 % (11.5-14.5) H 08/22/18 06:00 Plt Count 120 10^3/uL (120.0-450.0) 08/22/18 06:00 MPV 11.1 fl (7.0-11.0) H 08/22/18 06:00 Neut % (Auto) 58.8 % (50.0-68.0) 08/18/18 23:04 Lymph % (Auto) 24.6 % (22.0-35.0) 08/18/18 23:04 [place] % (Auto) 16.2 % (1.0-6.0) H 08/18/18 23:04 Eos % (Auto) 0.2 % (1.5-5.0) L 08/18/18 23:04 Baso % (Auto) 0.2 % (0.0-3.0) 08/18/18 23:04 Lymph # (Auto) 1.4 (1.2-3.4) 08/18/18 23:04 [place] # (Auto) 0.9 (0.1-0.6) H 08/18/18 23:04 Eos # (Auto) 0.0 (0.0-0.7) 08/18/18 23:04 Baso # (Auto) 0.01 K/mm3 (0.0-2.0) 08/18/18 23:04 Absolute Neuts (auto) 3.35 (1.4-6.5) 08/18/18 23:04 Sodium 138 mmol/L (132-148) 08/22/18 06:00 Potassium 4.3 mmol/L (3.6-5.0) 08/22/18 06:00 Chloride 105 mmol/L (98-107) 08/22/18 06:00 Carbon Dioxide 28 mmol/L (21-33) 08/22/18 06:00 Anion Gap 10 (10-20) 08/22/18 06:00 BUN 18 mg/dL (7-21) 08/22/18 06:00 Creatinine 0.9 mg/dl (0.8-1.5) 08/22/18 06:00 Est GFR ( Amer) > 60 08/22/18 06:00 Est GFR (Non-Af Amer) > 60 08/22/18 06:00 Random Glucose 94 mg/dL (70-110) 08/22/18 06:00 Calcium 10.0 mg/dL (8.4-10.5) 08/22/18 06:00 Phosphorus 3.4 mg/dL (2.5-4.5) 08/18/18 23:04 Magnesium 1.7 mg/dL (1.7-2.2) 08/18/18 23:04 Total Bilirubin 0.2 mg/dL (0.2-1.3) 08/22/18 06:00 AST 21 U/L (17-59) 08/22/18 06:00 ALT 16 U/L (7-56) 08/22/18 06:00 Alkaline Phosphatase 51 U/L (38-126) 08/22/18 06:00 Troponin I < 0.01 ng/mL 08/18/18 23:04 Total Protein 7.1 g/dL (5.8-8.3) 08/22/18 06:00 Albumin 3.7 g/dL (3.0-4.8) 08/22/18 06:00 Globulin 3.5 gm/dL 08/22/18 06:00 Albumin/Globulin Ratio 1.1 (1.1-1.8) 08/22/18 06:00 Vitamin B6 TNP 08/20/18 07:00 Vitamin B12 373 pg/mL (239-931) 08/20/18 07:00 TSH 3rd Generation 3.72 mIU/mL (0.46-4.68) 08/20/18 07:00 Urine Color Yellow (YELLOW) 08/19/18 14:40 Urine Appearance Clear (CLEAR) 08/19/18 14:40 Urine pH 6.0 (4.7-8.0) 08/19/18 14:40 Ur Specific [place] 1.010 (1.005-1.035) 08/19/18 14:40 Urine Protein Negative mg/dL (<30 mg/dL) 08/19/18 14:40 Urine Glucose (UA) Negative mg/dL (NEGATIVE) 08/19/18 14:40 Urine Ketones Negative mg/dL (NEGATIVE) 08/19/18 14:40 Urine Blood Negative (NEGATIVE) 08/19/18 14:40 Urine Nitrate Negative (NEGATIVE) 08/19/18 14:40 Urine Bilirubin Negative (NEGATIVE) 08/19/18 14:40 Urine Urobilinogen 0.2 E.U./dL (<1 E.U./dL) 08/19/18 14:40 Ur Leukocyte Esterase Small Bradly/uL (NEGATIVE) H 08/19/18 14:40 Urine RBC TEST NOT PERFORMED 08/19/18 14:40 Urine WBC 5 - 10 /hpf (0-6) H 08/19/18 14:40 Ur Epithelial Cells 4 - 5 /hpf (0-5) 08/19/18 14:40 Alcohol, Quantitative < 10 mg/dL (0-10) 08/18/18 23:04 - Hospital Course Hospital Course: 62 year old male with past medical history of dementia who presented to [facility] via EMS with complaints of being confused. Patient reported no past medical history other than his dementia. He was unaware of his medications or family contacts at time of admission. Patient UDS was done and noted to be negative. Patient was admitted for etoh intoxication/withdrawal and treated with IV banana bag, multivitamin, folic acid, thiamine and ativan prn. Patient was stabilized and treated for withdrawal with no events. Patient during admission exhibited weakness, decreased standing balance, decreased activity tolerance that lead to decline in his function. Physical therapy evaluated patient with recommendation for subacute rehab. Patient was accepted to [facility] at [facility] for [facility]LY. Patient was agreeable to CHARLY. Discharge planning including outpatient follow up, medication reconciliation, signs and symptoms to be concerned for return to ED or call for PCP were discussed. Patient was in understanding. This is a brief summary of patient stay, see chart for full detail. Discharge Exam - Head Exam Head Exam: ATRAUMATIC, NORMAL INSPECTION, NORMOCEPHALIC - Eye Exam Eye Exam: EOMI, PERRL - ENT Exam ENT Exam: Mucous Membranes Moist - Neck Exam Neck exam: Full Rom - Respiratory Exam Respiratory Exam: Clear to PA & Lateral, NORMAL BREATHING PATTERN, UNREMARKABLE - Cardiovascular Exam Cardiovascular Exam: REGULAR RHYTHM, +S1, +S2 - GI/Abdominal Exam GI & Abdominal Exam: Normal Bowel Sounds, Unremarkable. absent: Firm, Guarding, Rigid - Extremities Exam Extremities exam: normal inspection - Neurological Exam Neurological exam: Alert, CN II-XII Intact, Normal Gait, Oriented x3 - Psychiatric Exam Psychiatric exam: Normal Affect, Normal Mood - Skin Skin Exam: Dry, Intact Discharge Plan - Discharge Medications Prescriptions: Donepezil [Aricept] 5 mg PO DAILY #30 tab - Follow Up Plan Condition: GOOD Disposition: REHAB FACILITY/REHAB UNIT Instructions: Altered Mental Status (DC), Near Fainting (DC) Additional Instructions: Follow up with your primary care physician within 7-10 days upon discharge from rehab facility Take your medications as prescribed to you If you experience chest pain, shortness of breath, unrelenting fever return to the nearest ED <Natividad Chinchilla - Last Filed: 08/24/18 15:09> Provider - Provider Date of Admission: 08/21/18 14:41 Attending physician: Natividad Chinchilla MD Consults: 08/19/18 05:37 Social Work Referral Routine Comment: Confused; Appears he is unable for self-care Physician Instructions: Reason For Exam: Lives alone; Eloise score of 8 Hospital Course - Lab Results Lab Results: Most Recent Lab Values WBC 4.3 10^3/uL (4.5-11.0) L 08/22/18 06:00 RBC 4.58 10^6/uL (3.5-6.1) 08/22/18 06:00 Hgb 12.9 g/dL (14.0-18.0) L 08/22/18 06:00 Hct 38.9 % (42.0-52.0) L 08/22/18 06:00 MCV 84.9 fl (80.0-105.0) 08/22/18 06:00 MCH 28.2 pg (25.0-35.0) 08/22/18 06:00 MCHC 33.2 g/dl (31.0-37.0) 08/22/18 06:00 RDW 16.7 % (11.5-14.5) H 08/22/18 06:00 Plt Count 120 10^3/uL (120.0-450.0) 08/22/18 06:00 MPV 11.1 fl (7.0-11.0) H 08/22/18 06:00 Neut % (Auto) 58.8 % (50.0-68.0) 08/18/18 23:04 Lymph % (Auto) 24.6 % (22.0-35.0) 08/18/18 23:04 [place] % (Auto) 16.2 % (1.0-6.0) H 08/18/18 23:04 Eos % (Auto) 0.2 % (1.5-5.0) L 08/18/18 23:04 Baso % (Auto) 0.2 % (0.0-3.0) 08/18/18 23:04 Lymph # (Auto) 1.4 (1.2-3.4) 08/18/18 23:04 [place] # (Auto) 0.9 (0.1-0.6) H 08/18/18 23:04 Eos # (Auto) 0.0 (0.0-0.7) 08/18/18 23:04 Baso # (Auto) 0.01 K/mm3 (0.0-2.0) 08/18/18 23:04 Absolute Neuts (auto) 3.35 (1.4-6.5) 08/18/18 23:04 Sodium 138 mmol/L (132-148) 08/22/18 06:00 Potassium 4.3 mmol/L (3.6-5.0) 08/22/18 06:00 Chloride 105 mmol/L (98-107) 08/22/18 06:00 Carbon Dioxide 28 mmol/L (21-33) 08/22/18 06:00 Anion Gap 10 (10-20) 08/22/18 06:00 BUN 18 mg/dL (7-21) 08/22/18 06:00 Creatinine 0.9 mg/dl (0.8-1.5) 08/22/18 06:00 Est GFR ( Amer) > 60 08/22/18 06:00 Est GFR (Non-Af Amer) > 60 08/22/18 06:00 Random Glucose 94 mg/dL (70-110) 08/22/18 06:00 Calcium 10.0 mg/dL (8.4-10.5) 08/22/18 06:00 Phosphorus 3.4 mg/dL (2.5-4.5) 08/18/18 23:04 Magnesium 1.7 mg/dL (1.7-2.2) 08/18/18 23:04 Total Bilirubin 0.2 mg/dL (0.2-1.3) 08/22/18 06:00 AST 21 U/L (17-59) 08/22/18 06:00 ALT 16 U/L (7-56) 08/22/18 06:00 Alkaline Phosphatase 51 U/L (38-126) 08/22/18 06:00 Troponin I < 0.01 ng/mL 08/18/18 23:04 Total Protein 7.1 g/dL (5.8-8.3) 08/22/18 06:00 Albumin 3.7 g/dL (3.0-4.8) 08/22/18 06:00 Globulin 3.5 gm/dL 08/22/18 06:00 Albumin/Globulin Ratio 1.1 (1.1-1.8) 08/22/18 06:00 Vitamin B6 TNP 08/20/18 07:00 Vitamin B12 373 pg/mL (239-931) 08/20/18 07:00 TSH 3rd Generation 3.72 mIU/mL (0.46-4.68) 08/20/18 07:00 Urine Color Yellow (YELLOW) 08/19/18 14:40 Urine Appearance Clear (CLEAR) 08/19/18 14:40 Urine pH 6.0 (4.7-8.0) 08/19/18 14:40 Ur Specific [place] 1.010 (1.005-1.035) 08/19/18 14:40 Urine Protein Negative mg/dL (<30 mg/dL) 08/19/18 14:40 Urine Glucose (UA) Negative mg/dL (NEGATIVE) 08/19/18 14:40 Urine Ketones Negative mg/dL (NEGATIVE) 08/19/18 14:40 Urine Blood Negative (NEGATIVE) 08/19/18 14:40 Urine Nitrate Negative (NEGATIVE) 08/19/18 14:40 Urine Bilirubin Negative (NEGATIVE) 08/19/18 14:40 Urine Urobilinogen 0.2 E.U./dL (<1 E.U./dL) 08/19/18 14:40 Ur Leukocyte Esterase Small Bradly/uL (NEGATIVE) H 08/19/18 14:40 Urine RBC TEST NOT PERFORMED 08/19/18 14:40 Urine WBC 5 - 10 /hpf (0-6) H 08/19/18 14:40 Ur Epithelial Cells 4 - 5 /hpf (0-5) 08/19/18 14:40 Alcohol, Quantitative < 10 mg/dL (0-10) 08/18/18 23:04 Attending/Attestation - Attestation I have personally seen and examined this patient.: Yes I have fully participated in the care of the patient.: Yes I have reviewed all pertinent clinical information, including history, physical exam and plan: Yes Notes (Text): 08/24/18 15:07 Patient was seen and examined with medical lab scientist.Agreed with assessment and plan. 62 year old male with past medical history of dementia and substance abuse was admitted for alcohol withdrawal and confusion. He has mild cognitive dysfunction but otherwise alert,awake and oriented.His speech is normal.There is no focal deficit. CT head was negative for acute infarct.There is no sign of alcohol withdrawal at this time. He was having difficulty in ambulation, he was evaluated by PT and CHARLY has been recommended. Issue of ongoing alcohol abuse and compliance with medication was discussed in detail. Patient will be discharged to [facility]. Management plan was discussed in detail with patient. Education was provided, need reinforcement.
== END 2018-08-24 13:05 | DRG 897 ==
LOC: ED 21:48 → ERH 08-19 00:57 → 3RSO 08-19 01:42 → OBSVTOIN 08-21 14:41
PROVIDERS: ADMIT Internal Medicine; ATTEND Internal Medicine
DX: F10.239 Alcohol dependence with withdrawal, unspecified (principal); F17.210 Nicotine dependence, cigarettes, uncomplicated; R41.82 Altered mental status, unspecified; F03.90 Unspecified dementia, unspecified severity, without behavioral disturbance, psychotic disturbance, mood disturbance, and anxiety; Y90.0 Blood alcohol level of less than 20 mg/100 ml; F10.229 Alcohol dependence with intoxication, unspecified